=== PATIENT | female | born 1945 | race Caucasian/White ===

== ENCOUNTER 2016-09-30 07:45 | Day surgery (SDC) | payer MEDICARE, OTHER ==
[~2016-09-30] VITALS: Ht 152.4 cm; Wt 86.0 kg
[~2016-09-30 07:45] MED LIST: ACET325T51 PO; ALB083NB3 IH; ALBU17AE22 INH; BACI1CAP6 PO; DILT120C86 PO; DILT30TA PO; DOXY100C2 PO; FLUT12AE8 IH; FUR20 PO; Lactated Ringer's 1,000 ML IV ONE; MONT10TA23 PO; MULT1CAP33 PO; POTA20TA7 PO; PRE20 PO
[2016-09-30 08:14] VITALS: BP 137/88; PULSE 94; RESP 16; O2SAT 93
--- NOTE | 2016-09-30 08:29 | PCM.HPANE ---
Patient Data Surgeon Admitting Provider: Attending Provider:Giuliano Holly MD Primary Care Physician:Rebeca Morris Other Provider:[place] An[facility] Reason for Visit Tubular Adenoma Of Colon Ht/WT & BMI Height (Feet): 5 Height (Inches): 0 Weight (Kilograms): 86 Body Mass Index 37.00 Allergies Coded Allergies: cephalexin (Verified Allergy, Severe, colitis, 07/07/14) Iodinated Contrast- Oral and IV Dye (Verified Allergy, Intermediate, RASH X 6 WEEKS, 07/07/14) budesonide (Verified Allergy, Unknown, 09/29/16) ciprofloxacin (Verified Allergy, Unknown, 07/07/14) formoterol (Verified Allergy, Unknown, 09/29/16) gemfibrozil (Verified Allergy, Unknown, 07/07/14) iodine (Verified Allergy, Unknown, 07/07/14) ipratropium bromide (Verified Allergy, Unknown, 07/07/14) niacin (Verified Allergy, Unknown, 07/07/14) theophylline (Verified Allergy, Unknown, 07/07/14) vitamin E (Verified Allergy, Unknown, 07/07/14) Uncoded Allergies: OMEGA 3 (Allergy, Unknown, 07/07/14) Past Anesthesia History Anesthesia History: Positive for:: Abnormal Airway (TRE), Denies:: Anesthesia Reactions, Difficult Intubation, Fam Anesthesia Reaction , Fam Malignant Hypertherm, Malignant Hyperthermia Diabetes History Hx Diabetes?: No MRSA MRSA: No Medications Home Meds Incl Beta Esthela: No (Diltiazem) Reported Medications Acetaminophen 325 Mg Ivvsti123 Mg PO Q4H PRN For Fever Ref 0 09/29/16 Bacillus Coagulans (Probiotic)10 Billion Cell Capsule.dr1 Each PO DAILY 09/29/16 Prednisone (PredniSONE)20 Mg Qjragy65 Mg PO DIRECTED Ref 0 09/29/16 Multivitamin (Multivitamins)1 Each Capsule1 Each PO DAILY 09/29/16 Montelukast 10 Mg Qwjtfq42 Mg PO HS Ref 0 09/29/16 Potassium Chloride ER (Klor-Con M20)20 Meq Rcyooi87 Meq PO DAILY Ref 0 09/29/16 Furosemide 20 Mg Tab20 Mg PO DAILY 30 Days Ref 0 09/29/16 Fluticasone Propionate (Flovent HFA 110 mcg)12 Gm Aer.w.adap2 Puffs IH BID #12 GM Ref 0 09/29/16 Doxycycline Hyclate 100 Mg Ojmaioq164 Mg PO BID 09/29/16 Diltiazem ER 120 Mg Capsule.er120 Mg PO DAILY Ref 0 09/29/16 Diltiazem 30 Mg Jvpanw11 Mg PO TID PRN Tachycardia 09/29/16 Albuterol-Expunged Drug, Do Not Renew! 8.5 Gm Aero8.5 Gm INH 11/08/11 Albuterol-Expunged Drug, Do Not Renew! 2.5 Mg/3 Ml Nebu2.5 Mg IH Q2HP #25 NEB 11/08/11 History History of ENT Problems?: Yes HEENT History: Positive for:: Abnormal Airway (TRE) Denies:: Difficult Intubation Hearing Problem Denture Type: None Teeth Condition: Broken Teeth Missing Teeth Hx of Heart Problems?: Yes Cardiovascular History: Positive for:: Congestive Heart Failure (UNSURE; FEET SWELL. NOT TAKING LASIX RIGHT NOW) Hypertension Denies:: Atrial Fibrillation ("Irregular heart rhythm") Pacemaker Hx of Respiratory Problem?: Yes Respiratory History: Positive for:: Asthma COPD Pneumonia Denies:: Tuberculosis Hx Neurologic Problems?: No Neurological History: Denies:: CVA Hx of GI Problems?: Yes Hx of Problems?: No Hx Musculoskeletal Problems?: Yes Musculoskeletal History: Positive for:: Fibromyalgia Hx Surgeries?: Yes Hx Any Other Health Problems?: Yes Hx Diabetes: No Hx Alcohol Use: NoHx Substance Use: No Smoking Status: Former Smoker Have You Smoked inLast 12 mo: No Stop/Bang Treated for Sleep Apnea?: Yes Do You Have a CPAP Machine?: Yes TRE Risk Assessment: High Risk, =/>3 Yes Risk Assessment Category Category 1A: Patient has history of documented sleep apnea, and HAS NOT received any narcotic, sedative or anesthesia administration during this stay. Category 1B: Patient has history of documented sleep apnea, and HAS received any narcotic , sedative or anesthesia administration during this stay Category 2: Patient has SUSPECTED Obstructive Sleep Apnea, and HAS received any narcotic , sedative or anesthesia administration during this stay. Category 3: Patient has SUSPECTED Obstructive Sleep Apnea and HAS NOT received narcotic, sedative or anesthesia administration during this stay. Category 4: Outpatient in Procedural Areas with known sleep apnea or who screen positive for High Risk via the STOP/BANG questionnaire. Exam Exam Vital Signs Vital Signs Date Time Temp Pulse Resp B/P Pulse Ox O2 Delivery O2 Flow Rate FiO2 09/30/16 08:14 94 16 137/88 93 Room Air General Appearance: Alert, Oriented X3, Cooperative, No Acute Distress HEENT/AIRWAY: MP 3, Neck Movement Lungs: Clear to Auscultation, Normal Air Movement Heart: Exam Unremarkable, Regular Rate/Rhythm, No Murmurs/Rubs/Gallops Plan Impression Patient chart reviewed, patient interviewed and anesthestic plan with risks, benefits, and alternatives discussed, and informed consent obtained. NPO per Anesth. Guidelines: Yes ASA Physical Status: ASA3 Severe Disease Anesthetic Plan: MAC Bene/Risks/Altern/Consents: Yes HP Complete Prior to Induction: Yes Scott Rucker MD Sep 30, 2016 08:29
[2016-09-30] MEDS ORDERED: Lactated Ringer's 1,000 ML IV SCH (09:17)
[2016-09-30] MEDS ORDERED: MetoCLOpramide 5 mg/mL 2 mL Inj IVPUSH PRN (09:20)
[2016-09-30] MEDS ORDERED: Ondansetron 2 mg/mL 2 mL Inj IVPUSH PRN (09:20)
[2016-09-30 09:36] VITALS: BP 147/73; PULSE 83; RESP 14; O2SAT 98
[2016-09-30 09:44] VITALS: BP 134/67; PULSE 87; RESP 16; O2SAT 97
--- NOTE | 2016-09-30 09:53 | ENDO ---
[address] [address] ENDOSCOPY PROCEDURE PATIENT: PAXTON JUDGE : 1945 MR#: [id number] ADMIT: 09/30/2016 JOB ID: [id number] DATE OF SERVICE: 09/30/2016 OPERATION: Colonoscopy with snare polypectomy and biopsy. PREOPERATIVE DIAGNOSIS(ES): History of tubular adenoma polyp. POSTOPERATIVE DIAGNOSIS(ES): 1. There is a 3 cm ascending colon polyp, completely removed by hot snare polypectomy. 2. There is a 5 mm ascending colon polyp, removed by cold biopsy forceps. 3. There was a 1 cm ascending colon polyp, removed by hot snare polypectomy. 4. Mild sigmoid diverticulosis. ANESTHESIA: None. COMPLICATIONS: None. BLOOD LOSS: Minimal. DESCRIPTION OF PROCEDURE: After risks and benefits explained to the patient, informed consent was obtained. After anesthesia administered, a colonoscope was inserted per rectum to cecum. Mucosa carefully examined. Prep of the patient was excellent. After procedure was done, the scope withdrawn and the procedure terminated. FINDINGS: Upon inspection of anus, no masses, hemorrhoids, ulcers or fissures were seen. Throughout the entire examination there is mild sigmoid diverticulosis. There were three polyps in the ascending colon, measuring 3 cm, 1 cm and 5 mm. The two largest ones were removed by hot snare polypectomy. Last one was removed by cold biopsy forceps. Retroflexion . IMPRESSION: 1. Three polyps in the ascending colon, largest size 3 cm, status post hot snare polypectomy and biopsy. 2. Mild sigmoid diverticulosis. RECOMMENDATIONS: If three or more tubular adenoma polyps or if the largest size about 3 cm polyp is atubular adenoma polyp, then repeat colonoscopy in three years. Otherwise repeat colonoscopy in five years. High fiber diet.
--- NOTE | 2016-09-30 10:07 | PCM.ANEP1 ---
Post Anesthesia PACU Phase 1 Assessment Vital Signs Vital Signs Date Time Temp Pulse Resp B/P Pulse Ox O2 Delivery O2 Flow Rate FiO2 09/30/16 09:44 87 16 134/67 97 Room Air 09/30/16 09:36 83 14 147/73 98 Room Air 09/30/16 08:14 94 16 137/88 93 Room Air Anesthetic Administered: MAC Level of Alertness: Awake, talking MARQUEZ's with Equal Strength: Yes Pain: No Nausea or Vomiting: No CV Function & Hydration Stable: Yes Airway Device: Oxygen Delivery: Room Air Lungs: Clear to Auscultation, Normal Air Movement Dermatome Level: Full Sensation PACU Phase 2 Assessment Complications: No Follow up Care: N/A Patient Instructions Provided: Yes Scott Rucker MD Sep 30, 2016 10:07
--- NOTE | 2016-10-02 09:33 | PATH ---
SURGICAL PATHOLOGY Attending Physician:Giuliano Holly MD CASE STATUS: Signed Out PATIENT NAME: PAXTON JUDGE PID: [id number] : 1945 DATE COLLECTED:09/30/2016 15:14 SPECIMEN: 1: Colon, Polyp 2: Colon, Polyp 3: Colon, Polyp CLINICAL HISTORY: 1. ASCENDING COLON POLYP #1 2. ASCENDING COLON POLYP #2 3. ASCENDING COLON POLYP #3 FINAL DIAGNOSIS: 1.ASCENDING COLON POLYP #1, BIOPSY: MULTIPLE (APPROXIMATELY 11) PORTIONS OF TUBULAR ADENOMA; NEGATIVE FOR HIGH-GRADE DYSPLASIA. 2.ASCENDING COLON POLYP #2, BIOPSY: TUBULAR ADENOMA; NEGATIVE FOR HIGH-GRADE DYSPLASIA. 3.ASCENDING COLON POLYP #3, BIOPSY: PORTIONS OF TUBULAR ADENOMA X2; NEGATIVE FOR HIGH-GRADE DYSPLASIA. ICD10 K63.5 GROSS DESCRIPTION: Received three formalin-filled containers, each labeled with the patient's name. 1. In a container labeled "descending colon polyp tg1" are multiple portions of tissue which aggregate to 0.7 x 0.7 x 0.6 cm. The largest piece is bisected. All fragments are submitted in cassettes 1A and 1B. 2. In a container labeled "2. Ascending colon polyp #2" consists of a 0.2 x 0.2 x 0.2 cm portion of tissue which is entirely submitted in cassette 2A. 3. In a container labeled "3. Ascending colon polyp #3", specimen consists of two portions of tissue which aggregate to 0.2 x 0.2 x 0.1 cm. The specimen is entirely submitted in cassette 3A. ([facility] [place]:[id number]) MICRO DESCRIPTION: See diagnosis. ICD-9 CODES: CPT CODES: 1: 69974 2: 34389 3: 43968 Electronically Signed Out Tianna Khan MD [facility] Pathology [facility] [address], [place] [address] Technical component performed at [facility], [facility] [address], [place], [address]
== END 2016-09-30 23:59 | disposition home or self-care (01) ==
LOC: END 07:45
PROVIDERS: ATTEND Internal Medicine Gastroenterology
DX: Z12.11 Encounter for screening for malignant neoplasm of colon (principal); Z86.010 Personal history of colon polyps; D12.2 Benign neoplasm of ascending colon; J44.9 Chronic obstructive pulmonary disease, unspecified; G47.33 Obstructive sleep apnea (adult) (pediatric); I10 Essential (primary) hypertension; I49.9 Cardiac arrhythmia, unspecified
CPT/HCPCS: 45380; 45385; J7120